=== PATIENT | male | born 1965 | race Caucasian/White ===

== ENCOUNTER 2024-10-17 15:56 | Emergency (ER) | payer SELFPAY ==
[2024-10-17] MEDS: cefTRIAXone 1 GM Vial IM ONE (16:30)
[2024-10-17] MEDS: Cephalexin 500 MG Cap PO ONE (16:37)
[2024-10-17] MEDS: Metoprolol Succinate 25 MG Tab.ER PO ONE (16:55)
== END 2024-10-17 17:05 | disposition home or self-care (01) ==
LOC: JD.ED 15:56
DX: L03.115 Cellulitis of right lower limb (principal); Z79.899 Other long term (current) drug therapy
CPT/HCPCS: 99283; A9270

== ENCOUNTER 2024-10-20 21:54 | Inpatient (IN) | payer SELFPAY ==
[2024-10-21] MEDS ORDERED: Sodium Chloride 0.9% 10 ML Syringe FLUSH PRN (04:00)
[2024-10-21 04:09] LABS: BASOPHILS PERCENT AUTO 0.4 % (0.0-1.0); EOSINOPHILS ABSOLUTE AUTO 0.2 K/mm3 (0.0-0.4); EOSINOPHILS PERCENT AUTO 1.9 % (0.0-6.0); HEMATOCRIT 38.2 % (42.0-52.0); IMMATURE GRAN ABSOLUTE AUTO 0.01 K/mm3 (0.00-0.05); IMMATURE GRAN PERCENT AUTO 0.1 % (0.0-0.4); LYMPHOCYTES ABSOLUTE AUTO 1.7 K/mm3 (1.0-4.8); LYMPHOCYTES PERCENT AUTO 21.3 % (24.0-44.0); MEAN CORPUSCULAR HEMOGLOBIN 28.3 pg (28.0-32.0); MEAN CORPUSCULAR HGB CONC 31.4 g/dl (32.0-36.0); MEAN CORPUSCULAR VOLUME 90.1 fl (83.0-99.0); MEAN PLATELET VOLUME 8.2 fl (9.4-12.4); MONOCYTES ABSOLUTE AUTO 0.6 K/mm3 (0.0-0.8); MONOCYTES PERCENT AUTO 7.8 % (0.0-8.0); NEUTROPHILS ABSOLUTE AUTO 5.3 K/mm3 (1.8-7.7); NEUTROPHILS PERCENT AUTO 68.5 % (41.0-71.0); PLATELET COUNT,PLT 284 K/mm3 (150-400); RED BLOOD CELL COUNT 4.24 M/mm3 (4.52-5.90); WHITE BLOOD CELL COUNT,WBC 7.79 K/mm3 (3.9-11.3)
[2024-10-21 04:11] LABS: A/G RATIO 0.6 (1-2); ALBUMIN 2.7 g/dl (3.4-5.0); ANION GAP 8.7 (5-15); BILIRUBIN TOTAL 0.7 mg/dL (0.2-1.0); CALCIUM 9.2 mg/dL (8.5-10.1); EST CRCL DRUG DOSING (CG) 86.8 mL/min; POTASSIUM,K 3.7 mEq/L (3.5-5.1); PROTEIN TOTAL,TP 7.6 g/dl (6.4-8.2)
[2024-10-21 04:12] LABS: LACTIC ACID 1.4 mmol/L (0.4-2.0)
[2024-10-21] MEDS: cefTRIAXone 1 GM Vial IVPUSH ONE (04:41)
[2024-10-21] MEDS: cefTRIAXone 1 GM Vial ONE (04:42)
[2024-10-21] MEDS: VANCOmycin 2 GM/400 ML 2 GM in Premix Bag 1 BAG IV ONE (05:10)
[2024-10-21] MEDS ORDERED: Melatonin 3 MG Tab PO PRN (07:22)
[2024-10-21] MEDS ORDERED: Docusate Sodium 100 MG Cap PO PRN (07:22)
[2024-10-21] MEDS ORDERED: Acetaminophen 325 MG Tab PO PRN (07:22)
[2024-10-21] MEDS ORDERED: Ondansetron 4 MG/2 ML SDV IV PRN (07:22)
[2024-10-21] MEDS: Nicotine 14 MG/24 Hr Patch TRDERM SCH (13:33)
[2024-10-21] MEDS: Losartan 25 MG Tab PO SCH (13:34)
[2024-10-21] MEDS: VANCOmycin 1.5 GM/300 ML 1.5 GM in Premix Bag 1 BAG IV SCH (17:47)
[2024-10-21 18:30] LABS: BARBITURATE SCREEN,URINE NEGATIVE (CUTOFF=200); BENZODIAZEPINES SCREEN,URINE NEGATIVE (CUTOFF=150); BUPRENORPHINE SCREEN,URINE NEGATIVE (CUTOFF=10); METHADONE SCREEN, URINE NEGATIVE (CUT0FF=200); METHAMPHETAMINES SCREEN, URINE PRESUMPTIVE POSITIVE (CUTOFF=500); OXYCODONE SCREEN,URINE NEGATIVE (CUT0FF=100); THC SCREEN,URINE 20 NG/ML NEGATIVE (CUTOFF=50)
[2024-10-21 18:42] LABS: AMPHETAMINES SCREEN, URINE PRESUMPTIVE POSITIVE (CUTOFF=500)
[2024-10-21] MEDS ORDERED: Metoprolol Tartrate 5 MG/5 ML SDV IVPUSH PRN (20:18)
[2024-10-21] MEDS: Labetalol 100 MG/20 ML MDV IVPUSH PRN (20:45)
[2024-10-21] MEDS ORDERED: Nitroglycerin 0.4 MG Tab.SL SL ONE (21:59)
[2024-10-21 22:47] LABS: MAGNESIUM 2.1 mg/dL (1.8-2.4); TSH 2.159 uIU/mL (0.358-3.74)
[2024-10-22 04:38] LABS: BASOPHILS PERCENT AUTO 0.5 % (0.0-1.0); EOSINOPHILS ABSOLUTE AUTO 0.2 K/mm3 (0.0-0.4); EOSINOPHILS PERCENT AUTO 2.2 % (0.0-6.0); HEMATOCRIT 40.8 % (42.0-52.0); HEMOGLOBIN 12.7 gm/dl (14.0-18.0); IMMATURE GRAN ABSOLUTE AUTO 0.02 K/mm3 (0.00-0.05); IMMATURE GRAN PERCENT AUTO 0.2 % (0.0-0.4); LYMPHOCYTES ABSOLUTE AUTO 1.4 K/mm3 (1.0-4.8); LYMPHOCYTES PERCENT AUTO 16.9 % (24.0-44.0); MEAN CORPUSCULAR HEMOGLOBIN 28.9 pg (28.0-32.0); MEAN CORPUSCULAR HGB CONC 31.1 g/dl (32.0-36.0); MEAN CORPUSCULAR VOLUME 92.7 fl (83.0-99.0); MEAN PLATELET VOLUME 8.5 fl (9.4-12.4); MONOCYTES ABSOLUTE AUTO 0.7 K/mm3 (0.0-0.8); MONOCYTES PERCENT AUTO 8.2 % (0.0-8.0); PLATELET COUNT,PLT 264 K/mm3 (150-400); WHITE BLOOD CELL COUNT,WBC 8.34 K/mm3 (3.9-11.3)
[2024-10-22 05:01] LABS: BUN/CREATININE RATIO 11.7 (14-18); C-REACTIVE PROTEIN 1.05 mg/dL (<0.30); CALCIUM 8.7 mg/dL (8.5-10.1); CREATININE 1.2 mg/dL (0.7-1.3); EST CRCL DRUG DOSING (CG) 72.34 mL/min
[2024-10-22] MEDS: Enoxaparin 40 MG/0.4 ML Syringe SUBCUT SCH (08:59)
[2024-10-22] MEDS: VANCOmycin 1.25 GM/250 ML 1.25 GM in Premix Bag 1 BAG IV SCH (16:09)
[2024-10-22] MEDS: cloNIDine 0.1 MG Tab PO SCH (17:56)
[2024-10-22] MEDS: Metoprolol Succinate 25 MG Tab.ER PO SCH (17:57)
== END 2024-10-22 21:07 | disposition home or self-care (01) | DRG 603 ==
LOC: JD.ED 21:54 → JD.MS 10-21 04:44
PROVIDERS: ADMIT Family Medicine; ATTEND Student in an Organized Health Care Education/Training Program
DX: L03.115 Cellulitis of right lower limb (principal); I47.20 Ventricular tachycardia, unspecified; L03.116 Cellulitis of left lower limb; I10 Essential (primary) hypertension; Z86.16 Personal history of COVID-19; Z72.0 Tobacco use; Z79.899 Other long term (current) drug therapy
CPT/HCPCS: 29580-GP; 36415; 80048; 80053; 80202; 80306; 83605; 83735; 84443; 84484; 85025; 86140; 87040; 93306; 96374; 97161-GP; 97530-GP; 99284; 99285-25; A9270-GY; J0696; J1650; J1920; J3372

== ENCOUNTER 2024-12-18 12:29 | Inpatient (IN) | payer MEDICAID ==
[2024-12-18 13:46] LABS: MEAN PLATELET VOLUME 8.1 fl (9.4-12.4); NRBC ABSOLUTE 0.00 (0.00-0.02); NRBC PERCENT 0.0 % (0.0-0.2); PLATELET COUNT,PLT 303 K/mm3 (150-400); RED BLOOD CELL COUNT 4.02 M/mm3 (4.52-5.90); WHITE BLOOD CELL COUNT,WBC 10.93 K/mm3 (3.9-11.3)
[2024-12-18] MEDS: Sodium Chloride 0.9% 10 ML Syringe FLUSH PRN (13:56)
[2024-12-18 14:10] LABS: LACTIC ACID 2.0 mmol/L (0.4-2.0)
[2024-12-18 14:11] LABS: A/G RATIO 0.5 (1-2); ALANINE AMINOTRANSFERASE,ALT 45.0 U/L (16-63); ASPARTATE AMNIOTRANSFERASE,AST 54.0 U/L (15-37); BILIRUBIN TOTAL 0.9 mg/dL (0.2-1.0); BLOOD UREA NITROGEN,BUN 15.0 mg/dL (7-18); CARBON DIOXIDE,CO2 35.0 mEq/L (21-32); CHLORIDE,CL 101.0 mEq/L (98-107); CREATININE 1.2 mg/dL (0.7-1.3); EST CRCL DRUG DOSING (CG) 72.34 mL/min; ESTIMATED GFR 71.0 mL/min (>60); GLUCOSE RANDOM 143.0 mg/dL (70-99); POTASSIUM,K 3.6 mEq/L (3.5-5.1); PROTEIN TOTAL,TP 7.7 g/dl (6.4-8.2); SODIUM,NA 139.0 mEq/L (136-145)
[2024-12-18 14:13] LABS: TROPONIN I HIGH SENSITIVITY 145.0 pg/mL (<=76)
[2024-12-18 14:24] LABS: INR 1.21
[2024-12-18 14:57] LABS: BAND PERCENT MAN 0 % (0-10); BASOPHILS PERCENT MAN 0 (0.2-1.2); EOSINOPHILS PERCENT MAN 0 % (0.8-7.0); LYMPHOCYTES % ATYPICAL MANUAL 2 %; LYMPHOCYTES PERCENT MAN 10 % (20-40); MONOCYTES PERCENT MAN 7 % (2-10)
[2024-12-18 14:58] LABS: PLATELET COUNT ESTIMATE ADEQUATE
[2024-12-18] MEDS: Furosemide 100 MG/10 ML SDV IVPUSH ONE (15:33)
[2024-12-18] MEDS ORDERED: Ondansetron 4 MG/2 ML SDV IV PRN (16:16)
[2024-12-18] MEDS: Potassium Chloride 20 MEQ Tab.ER PO SCH (17:15)
[2024-12-18] MEDS: Magnesium Sulfate 2 GM/50 mL 2 GM in Premix Bag 1 BAG IV ONE (17:15)
[2024-12-18 18:12] LABS: BUPRENORPHINE SCREEN,URINE NEGATIVE (CUTOFF=10); METHADONE SCREEN, URINE NEGATIVE (CUT0FF=200); METHAMPHETAMINES SCREEN, URINE NEGATIVE (CUTOFF=500); OXYCODONE SCREEN,URINE NEGATIVE (CUT0FF=100); THC SCREEN,URINE 20 NG/ML NEGATIVE (CUTOFF=50)
[2024-12-18 18:55] LABS: AMPHETAMINES SCREEN, URINE NEGATIVE (CUTOFF=500)
[2024-12-19 05:29] LABS: MEAN PLATELET VOLUME 8.2 fl (9.4-12.4); NRBC ABSOLUTE 0.00 (0.00-0.02); NRBC PERCENT 0.0 % (0.0-0.2); PLATELET COUNT,PLT 294 K/mm3 (150-400); RED BLOOD CELL COUNT 4.18 M/mm3 (4.52-5.90); WHITE BLOOD CELL COUNT,WBC 8.82 K/mm3 (3.9-11.3)
[2024-12-19 06:04] LABS: A/G RATIO 0.5 (1-2); ALANINE AMINOTRANSFERASE,ALT 40.0 U/L (16-63); ASPARTATE AMNIOTRANSFERASE,AST 45.0 U/L (15-37); BILIRUBIN TOTAL 0.8 mg/dL (0.2-1.0); BLOOD UREA NITROGEN,BUN 15.0 mg/dL (7-18); CARBON DIOXIDE,CO2 35.0 mEq/L (21-32); CHLORIDE,CL 98.0 mEq/L (98-107); CREATININE 1.1 mg/dL (0.7-1.3); EST CRCL DRUG DOSING (CG) 78.91 mL/min; ESTIMATED GFR 78.0 mL/min (>60); GLUCOSE RANDOM 138.0 mg/dL (70-99); POTASSIUM,K 4.0 mEq/L (3.5-5.1); PROTEIN TOTAL,TP 7.6 g/dl (6.4-8.2); SODIUM,NA 136.0 mEq/L (136-145)
[2024-12-19 06:06] LABS: TROPONIN I HIGH SENSITIVITY 78.0 pg/mL (<=76)
[2024-12-19] MEDS ORDERED: Sennosides/Docusate Sodium 50-8.6 MG Tab PO PRN (17:56)
[2024-12-19] MEDS: Furosemide 40 MG/4 ML VIAL IVPUSH ONE (18:00)
[2024-12-20 05:53] LABS: BLOOD UREA NITROGEN,BUN 16.0 mg/dL (7-18); CARBON DIOXIDE,CO2 36.0 mEq/L (21-32); CHLORIDE,CL 99.0 mEq/L (98-107); CREATININE 1.1 mg/dL (0.7-1.3); EST CRCL DRUG DOSING (CG) 78.91 mL/min; ESTIMATED GFR 78.0 mL/min (>60); GLUCOSE RANDOM 144.0 mg/dL (70-99); PHOSPHORUS 4.4 mg/dL (2.6-4.7); POTASSIUM,K 3.8 mEq/L (3.5-5.1); SODIUM,NA 141.0 mEq/L (136-145)
[2024-12-20] MEDS: Furosemide 40 MG/4 ML VIAL IVPUSH ONE (11:41)
[2024-12-21 06:33] LABS: BLOOD UREA NITROGEN,BUN 18.0 mg/dL (7-18); CARBON DIOXIDE,CO2 36.0 mEq/L (21-32); CHLORIDE,CL 102.0 mEq/L (98-107); CREATININE 1.0 mg/dL (0.7-1.3); EST CRCL DRUG DOSING (CG) 86.8 mL/min; ESTIMATED GFR 88.0 mL/min (>60); GLUCOSE RANDOM 145.0 mg/dL (70-99); POTASSIUM,K 3.6 mEq/L (3.5-5.1); SODIUM,NA 143.0 mEq/L (136-145)
[2024-12-21] MEDS: Furosemide 40 MG/4 ML VIAL IVPUSH ONE (11:51)
[2024-12-22 06:13] LABS: BLOOD UREA NITROGEN,BUN 18.0 mg/dL (7-18); CARBON DIOXIDE,CO2 33.0 mEq/L (21-32); CHLORIDE,CL 102.0 mEq/L (98-107); CREATININE 1.1 mg/dL (0.7-1.3); EST CRCL DRUG DOSING (CG) 78.91 mL/min; ESTIMATED GFR 78.0 mL/min (>60); GLUCOSE RANDOM 102.0 mg/dL (70-99); POTASSIUM,K 3.8 mEq/L (3.5-5.1); SODIUM,NA 140.0 mEq/L (136-145)
[2024-12-22 09:00] LABS: CHOLESTEROL HDL 42 mg/dL (40-59); CHOLESTEROL LDL DIRECT 72 mg/dL (<100); CHOLESTEROL TOTAL 125 mg/dL (<200)
[2024-12-23 05:01] LABS: BLOOD UREA NITROGEN,BUN 20.0 mg/dL (7-18); CARBON DIOXIDE,CO2 32.0 mEq/L (21-32); CHLORIDE,CL 102.0 mEq/L (98-107); CREATININE 1.3 mg/dL (0.7-1.3); EST CRCL DRUG DOSING (CG) 66.77 mL/min; ESTIMATED GFR 64.0 mL/min (>60); POTASSIUM,K 3.8 mEq/L (3.5-5.1); SODIUM,NA 138.0 mEq/L (136-145)
[2024-12-23 05:32] LABS: GLUCOSE RANDOM 142.0 mg/dL (70-99)
== END 2024-12-24 14:46 | disposition home or self-care (01) | DRG 291 ==
LOC: JD.ED 12:29 → JD.MS 15:26
PROVIDERS: ADMIT Internal Medicine; ATTEND Family Medicine
DX: I11.0 Hypertensive heart disease with heart failure (principal); I50.43 Acute on chronic combined systolic (congestive) and diastolic (congestive) heart failure; J96.01 Acute respiratory failure with hypoxia; E87.3 Alkalosis; L03.116 Cellulitis of left lower limb; G47.30 Sleep apnea, unspecified; I87.8 Other specified disorders of veins; N50.89 Other specified disorders of the male genital organs; I42.8 Other cardiomyopathies; F15.90 Other stimulant use, unspecified, uncomplicated; Z86.16 Personal history of COVID-19; Z98.890 Other specified postprocedural states
CPT/HCPCS: 29580-GP; 36415; 71045; 71045-26; 80048; 80053; 80061; 80306; 83036; 83605; 83735; 84100; 84484; 85007; 85027; 85610; 86140; 93005; 93010; 93971-26-LT; 93971-LT; 96374; 97112-GP; 97161-GP; 97165-GO; 97530-GP; 97535-GO; 99232; 99233; 99239; 99285; 99285-25; A9270-GY; J0690; J0696; J1120; J1650; J1938; J3475